=== PATIENT | female | born 2000 | race Caucasian/White ===

== ENCOUNTER 2021-12-21 05:52 | Emergency (ER) | payer SELFPAY ==
[~2021-12-21] VITALS: Ht 149.9 cm; Wt 63.3 kg
[2021-12-21 06:45] VITALS: BP 117/72
[2021-12-21] MEDS ORDERED: IBUPROFEN 600MG TABLET PO ONE (06:45)
[2021-12-21] MEDS ORDERED: IBUP-2029 MT (07:44)
== END 2021-12-21 08:23 | disposition home or self-care (01) ==
LOC: ER 05:52
DX: S92.912A Unspecified fracture of left toe(s), initial encounter for closed fracture (principal); W18.30XA Fall on same level, unspecified, initial encounter; Y93.89 Activity, other specified; Y92.89 Other specified places as the place of occurrence of the external cause; Y99.8 Other external cause status
CPT/HCPCS: 73630; 99283